=== PATIENT | female | born 2000 | race African-American/Black ===

== ENCOUNTER 2022-11-22 04:30 | Observation (INO) | payer OTHER ==
[2022-11-22] MEDS ORDERED: LIDOCAINE 1% W/EPI 1:100,000 50 ML MDV ONE (04:43)
[2022-11-22 05:30] LABS: Absolute Lymphocytes (CBC) 1.6 K/uL (0.7-4.9); Hematocrit 22.2 % (36.0-45.0); Lymphocytes % 39.6 % (15.3-44.8); MCV 61.3 fL (80-100); MPV 8.6 fL (7.6-11.3); RBC Red Blood Cell Count 3.62 M/uL (3.86-4.86)
[2022-11-22 05:36] LABS: Protime INR 0.97
[2022-11-22 05:48] LABS: Potassium 3.2 mEq/L (3.5-5.1)
[2022-11-22] MEDS ORDERED: NA CHLORIDE 0.9% 250 ML ONE ×2 (06:08→11:39)
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
[2022-11-22] MEDS ORDERED: TDAP (DIPHTH,PERTUSS(ACELL),TET VAC) 0.5 ML VIAL IMVAC ONE (07:24)
[2022-11-22] MEDS ORDERED: ONDANSETRON 4 MG/2 ML VIAL ONE ×2 (07:51→09:09)
[2022-11-22 08:05] VITALS: BMI 19.6
[2022-11-22 08:46] VITALS: O2SAT 100
[2022-11-22] MEDS ORDERED: MORPHINE 4 MG/ML SYR ONE (09:09)
[2022-11-22 09:10] LABS: Anisocytosis 1+; Blood Morphology Comment NOTED (NOT SEEN); Hypochromasia 2+; Platelet Estimate ADEQ; White Blood Cell Scan OK (OK)
[2022-11-22] MEDS: HYDROCODONE/APAP 7.5/325 MG TAB PO PRN ×2 (14:10→19:45)
[2022-11-22 17:00] LABS: Hematocrit 31.9 % (36.0-45.0)
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
[2022-11-23] MEDS: HYDROCODONE/APAP 7.5/325 MG TAB PO PRN (01:00)
[2022-11-23 12:14] LABS: Specific Gravity > 1.030 (1.005-1.030); Urine Bacteria <20 /HPF (<20); Urine Bilirubin NEGATIVE (Negative); Urine Blood Negative (Negative); Urine Clarity Turbid (Clear); Urine Color Yellow (Yellow); Urine Glucose NEGATIVE (Negative); Urine Mucus 1+ /HPF (None Seen); Urine Protein TRACE (Negative); Urine RBC <5 /HPF (None Seen); Urine Urobilinogen 1+ (Normal)
[2022-11-23 16:34] VITALS: BP 105/61; TEMP 97.7
--- NOTE | 2022-11-24 17:14 | EKG ---
Test Date: 2022-11-22 Test Time: 19:51:52 Case Folder: JUDITH MEASUREMENT RESULTS: Intervals: Rate: 51 [place]: QRSD: 68 QT: 426 QTc: 392 [place]: P: [place]: QRS: 79 T: 66 INTERPRETIVE STATEMENTS: Sinus rhythm with PACs. Abnormal ECG Electronically Signed On 11-24-22 17:12:22 CDT by Sandro Dejesus
--- NOTE | 2022-11-24 17:14 | EKG ---
Test Date: 2022-11-22 Test Time: 19:51:04 [employer] Technician: JUDITH MEASUREMENT RESULTS: Intervals: Rate: 61 MS: 264 QRSD: 66 QT: 418 QTc: 420 [place]: P: 78 MS: 264 QRS: 78 T: 61 INTERPRETIVE STATEMENTS: Sinus rhythm with marked sinus arrhythmia with 1st degree AV block Otherwise normal ECG Compared to ECG 11/22/2022 19:48:45 Sinus bradycardia no longer present Electronically Signed On 11-24-22 17:12:28 CDT by Sandro Dejesus
--- NOTE | 2022-11-24 17:15 | EKG ---
Test Date: 2022-11-22 Test Time: 19:48:45 Molded Goods Operator: JUDITH MEASUREMENT RESULTS: Intervals: Rate: 55 FL: 224 QRSD: 66 QT: 440 QTc: 420 [place]: P: 63 FL: 224 QRS: 60 T: 43 INTERPRETIVE STATEMENTS: Sinus bradycardia with marked sinus arrhythmia with 1st degree AV block Otherwise normal ECG No previous ECG available for comparison Electronically Signed On 11-24-22 17:12:31 CDT by Sandro Dejesus
== END 2022-11-23 17:25 | disposition home or self-care (01) ==
LOC: ER 04:30 → ERHOLD 07:02 → 3RD-ICU 09:42 → 4TH 21:35
PROVIDERS: ADMIT Surgery; ATTEND Surgery
PROC: 0JQ10ZZ Repair Face Subcutaneous Tissue and Fascia, Open Approach (ICD-10-PCS; principal; 2022-11-22)
PROC: 30233N1 Transfusion of Nonautologous Red Blood Cells into Peripheral Vein, Percutaneous Approach (ICD-10-PCS; 2022-11-22)
DX: S01.80XA Unspecified open wound of other part of head, initial encounter (principal); D62 Acute posthemorrhagic anemia; Y04.2XXA Assault by strike against or bumped into by another person, initial encounter; Y93.89 Activity, other specified; Y92.832 Beach as the place of occurrence of the external cause; Y99.8 Other external cause status
CPT/HCPCS: 85025; 81001; 80048; 36415; 86900; 86850; 85610; 86901; 85730; 86920 ×2; 85018; 85014; 70450; 72125; 90471; 96375; 96374; 99285; 12011; 36430; J2405 ×2; P9016 ×2; J7050 ×2; 93005; G0378